=== PATIENT | female | born 2005 | race Caucasian/White ===

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

== ENCOUNTER 2023-06-24 09:41 | Emergency (ER) | payer BC, SELFPAY ==
[2023-06-24 09:42] VITALS: BP 125/82; PULSE 78; RESP 16; TEMP 36.5; O2SAT 100
[2023-06-24 09:53] VITALS: BP 121/64; O2SAT 98
[2023-06-24 10:01] VITALS: BP 129/91; O2SAT 100
--- NOTE | 2023-06-24 10:10 | ED.GENADULT ---
HPI - General Adult General Chief complaint: Nausea/Vomiting/Diarrhea Stated complaint: vomiting Time Seen by Provider: 06/24/23 09:44 History of Present Illness HPI narrative: 17-year-old female presented the emergency department for evaluation of nausea vomiting diarrhea. Patient reports symptoms started approximately 5 AM this morning. Patient does admit to daily THC use. Patient states she did take a shower prior to arrival but this did help. Patient denies any current pain but does report some cramping with the nausea and vomiting. Patient denies any likelihood of . Related Data Allergies Allergy/AdvReac Type Severity Reaction Status Date / Time No Known Allergies Allergy Verified 06/24/23 09:45 Review of Systems Review of Systems: All systems reviewed & are unremarkable except as noted in HPI and below PMFSH Past Medical History Medical History Patient denies significant medical history Social History Social History (Updated 03/09/22 @ 02:49 by Wayne Ocampo, ) Smoking status: Never smoker Alcohol intake: current Substance use: current Substance use type: marijuana Exam Narrative: APPEARANCE: Well appearing, no pain, no distress, well-nourished. HEAD: normocephalic, atraumatic. EYES: PERRLA/EOMI, conjunctivae clear. NOSE: Normal no drainage EARS:TMS clear with good light reflex. THROAT: Pharynx clear, no exudate. NECK: Supple. No adenopathy, no masses. RESPIRATORY: Airway patent, respirations nonlabored. Clear to auscultation bilaterally, no rales, rhonchi, wheezing. CARDIOVASCULAR: Regular rate and rhythm without murmurs rubs or gallops. ABDOMINAL: Soft, nontender, nondistended, normal bowel sounds MUSCULOSKELETAL: Moves all extremities. Strength/ROM intact, No edema, No calf tenderness. NEURO: Alert. Cranial nerves II through XII intact. SKIN: Warm, dry. Normal Color Course Course Emergency Course: 17-year-old female presented the ED for evaluation of nausea vomiting. Patient denied any urinary symptoms and did just complete her menstrual cycle. Patient denied being treated for urinary tract infection but urine culture is pending. Patient's nausea vomiting symptoms resolved with Haldol. Patient did have elevated ketones and is being treated with 2 L of IV fluids. Patient is resting comfortably. Patient will be discharged home with Zofran and patient was encouraged to decrease her THC intake. Patient was also encouraged of close follow-up with her primary care physician. Vital Signs Vital signs: Vital Signs Temperature 97.7 F 06/24/23 09:42 Pulse Rate 78 06/24/23 09:42 Respiratory Rate 16 06/24/23 09:42 Blood Pressure 125/82 06/24/23 09:42 Pulse Oximetry 100 06/24/23 09:42 Oxygen Delivery Room Air 06/24/23 09:42 Temperature 97.7 F 06/24/23 09:42 Pulse Rate 78 06/24/23 09:42 Respiratory Rate 16 06/24/23 09:42 Blood Pressure 129/91 H 06/24/23 10:01 Pulse Oximetry 98 06/24/23 10:16 Oxygen Delivery Room Air 06/24/23 09:42 Medical Decision Making Differential Diagnosis Differential Diagnosis: Nausea vomiting diarrhea, cannabinoid hyperemesis syndrome Vital Signs Vital Signs: Vital Signs Temperature 97.7 F 06/24/23 09:42 Pulse Rate 78 06/24/23 09:42 Respiratory Rate 16 06/24/23 09:42 Blood Pressure 125/82 06/24/23 09:42 Pulse Oximetry 100 06/24/23 09:42 Oxygen Delivery Room Air 06/24/23 09:42 Temperature 97.7 F 06/24/23 09:42 Pulse Rate 78 06/24/23 09:42 Respiratory Rate 16 06/24/23 09:42 Blood Pressure 129/91 H 06/24/23 10:01 Pulse Oximetry 98 06/24/23 10:16 Oxygen Delivery Room Air 06/24/23 09:42 Lab Data Lab results reviewed: Yes I reviewed the patient's lab results. 06/24/23 10:09 06/24/23 10:09 Labs: Lab Results 06/24/23 06/24/23 Range/Units 10:09 10:18 WBC
[2023-06-24 10:15] LABS: Basophils Absolute Auto 0.1 K/mm3 (0.0-0.1); Basophils Percent Auto 0.3 % (0.2-1.2); Eosinophils Percent Auto 0.2 % (0-4.4); Hematocrit 42.2 % (37.0-47.0); Hemoglobin 14.8 g/dL (12.0-15.0); Immature Granulocyte Absolute 0.06 K/mm3 (0.00-0.031); Immature Granulocyte Percent A 0.4 % (0-0.5); Lymphocytes Absolute Auto 1.48 K/mm3 (0.9-3.2); Lymphocytes Percent Auto 9.7 % (18.3-44.2); Mean Corpuscular HGB Conc 35.1 g/dl (32-36); Mean Corpuscular Hemoglobin 31.9 pg (26-34); Mean Corpuscular Volume 90.9 fl (80-100); Mean Platelet Volume 10.3 fl (7.4-10.4); Monocytes Absolute Auto 0.9 K/mm3 (0.1-0.6); Monocytes Percent Auto 6.2 % (2.6-8.5); Neutrophils Absolute Auto 12.7 K/mm3 (1.3-6.7); Neutrophils Percent Auto 83.2 % (45.5-73.1); Platelet Count Result 267 k/mm3 (150-375); Red Blood Count 4.64 M/mm3 (4.2-5.4); Red Cell Distribution Width 11.6 % (11.5-14.5); White Blood Count 15.3 K/mm3 (4.5-10.0)
[2023-06-24 10:16] VITALS: O2SAT 98
[2023-06-24] MEDS: SODIUM CHLORIDE 0.9% IV 1,000 ML 999 ML IV CONT ×2 (10:21→11:32)
[2023-06-24 10:26] LABS: Alanine Aminotransferase 18 U/L (6-35); Albumin Level 4.4 g/dL (3.7-5.6); Alkaline Phosphatase 40 U/L (45-116); Anion Gap 13 mmol/L (8-16); Aspartate Amino Transferase 27 U/L (14-36); Bilirubin,Total 0.9 mg/dL (0.2-1.3); Blood Urea Nitrogen 12 mg/dL (8-21); Calcium 9.3 mg/dL (8.9-10.7); Carbon Dioxide 19 mmol/L (22-30); Chloride 109 mmol/L (98-107); Estimated CRCL calculation 84 ml/min; Estimated Glomerular Filt Rate > 60; Glucose 173 mg/dL (65-110); Potassium 3.4 mmol/L (3.4-5.0); Sodium 141 mmol/L (134-143)
[2023-06-24] MEDS: HALOPERIDOL LACTATE 5 MG/ML VIAL IM (10:45)
[2023-06-24 10:50] LABS: Appearance Urine Cloudy (Clear); Bacteria Urine 1+ /hpf; Bilirubin Urine Negative (Negative); Blood Urine 2+ (Negative); Color Urine Yellow (Yellow); Glucose Urine UA Trace mg/dL (Negative); Hyaline Casts Urine Present /lpf; Ketones Urine 3+ mg/dL (Negative); Leukocyte Esterase Ur 2+ LEU/UL (Negative); Nitrate Urine Negative (Negative); Protein Urine 1+ mg/dL (Negative); RBC Urine 0-2 /hpf (0-2); Specific Grav Ur 1.013 (1.001-1.035); Squamous Epithelial Cell Urine Many /hpf (Few); Urobilinogen Urine 0.2 mg/dL (<2.0); WBC Urine 51-100 /hpf; pH Urine 5.5 (5.0-9.0)
[2023-06-24 10:58] LABS: Add Urine Microscopic? YES
== END 2023-06-24 12:00 | disposition home or self-care (01) ==
PROVIDERS: Emergency Provider Emergency Medicine
DX: R11.2 Nausea with vomiting, unspecified (principal)
CPT/HCPCS: 36415; 80053; 81001; 81025; 85025; 87086; 96360; 96372; 99283; J1630; J7030